=== PATIENT | female | born 1945 | race Caucasian/White ===

== ENCOUNTER 2018-06-24 06:46 | Day surgery (SDC) | payer MEDICARE, OTHER ==
[~2018-06-24] VITALS: Ht 172.7 cm; Wt 92.2 kg
[~2018-06-24 06:46] MED LIST: ASPI81EC PO; Aldactone25 MG PO; B Complex #11 EACH PO; BISA5EC PO; Bystolic10 MG PO; Estrogel93 GM TOP; LEVSOD112 PO; LEVSOD137 PO; LIOT25 PO; LISHYD2012 PO; MELO7.5 PO; NIFE30ER PO; SIMV10 PO; SPIR25 PO
[2018-06-24] MEDS ORDERED: MAGCHL64ER (07:18)
[2018-06-24] MEDS ORDERED: Vitamin D2000 UNIT (07:18)
== END 2018-06-24 08:52 | disposition home or self-care (01) ==
LOC: ORSCSDS 06:46
PROVIDERS: Surgery
PROC: 0DBK8ZX Excision of Ascending Colon, Via Natural or Artificial Opening Endoscopic, Diagnostic (ICD-10-PCS; principal; 2018-06-24 08:15)
DX: Z12.11 Encounter for screening for malignant neoplasm of colon (principal); D12.2 Benign neoplasm of ascending colon; K64.4 Residual hemorrhoidal skin tags; Z86.010 Personal history of colon polyps; E78.5 Hyperlipidemia, unspecified; G47.33 Obstructive sleep apnea (adult) (pediatric); I10 Essential (primary) hypertension; Z83.71 Family history of colonic polyps; Z79.82 Long term (current) use of aspirin; Z79.899 Other long term (current) drug therapy
CPT/HCPCS: 88305; J0330; J0461; J1980; J2405; J2704; J7120

== ENCOUNTER → 2018-11-26 | Outpatient (CLI) | payer MEDICARE, OTHER ==
[~2018-11-26] MED LIST changes: +MAGCHL64ER; +Vitamin D2000 UNIT
[2018-11-28 15:07] LABS: HPV 16 Negative (Negative); HPV 18 Negative (Negative); HPV OTHER HR TYPES Negative (Negative)
== END ==
LOC: LAB 17:54 → LAB SHORT 17:54
PROVIDERS: Obstetrics & Gynecology Gynecology
DX: Z12.72 Encounter for screening for malignant neoplasm of vagina (principal)
CPT/HCPCS: 87624; G0123

== ENCOUNTER → 2018-12-11 | Outpatient (CLI) | payer MEDICARE, OTHER | END | disposition home or self-care (01) | LOC: LAB 10:20 → LAB SHORT 10:20 → EDSTATUS 12-10 15:35 → LAB FUT 12-10 15:35 | DX: R10.13 Epigastric pain (principal) | CPT/HCPCS: 87338 ==

== ENCOUNTER 2019-01-27 08:48 | Day surgery (SDC) | payer MEDICARE, OTHER ==
[~2019-01-27] VITALS: Ht 172.7 cm; Wt 98.1 kg
[~2019-01-27 08:48] MED LIST changes: +Aspir 8181 MG
[2019-01-27] MEDS ORDERED: OMEPRAZOLE20 MG PO (10:08)
== END 2019-01-27 11:04 | disposition home or self-care (01) ==
LOC: ORSCSDS 08:48
PROVIDERS: Surgery
PROC: 0DB58ZX Excision of Esophagus, Via Natural or Artificial Opening Endoscopic, Diagnostic (ICD-10-PCS; principal; 2019-01-27 10:30)
DX: K21.0 Gastro-esophageal reflux disease with esophagitis (principal); K30 Functional dyspepsia; K44.9 Diaphragmatic hernia without obstruction or gangrene; I10 Essential (primary) hypertension; J45.909 Unspecified asthma, uncomplicated; E03.9 Hypothyroidism, unspecified; E78.5 Hyperlipidemia, unspecified; Z79.899 Other long term (current) drug therapy; Z79.82 Long term (current) use of aspirin
CPT/HCPCS: 88305; J2704; J7120

== ENCOUNTER 2019-10-22 11:49 | Day surgery (SDC) | payer MEDICARE ==
[~2019-10-22] VITALS: Ht 172.7 cm; Wt 102.3 kg
[~2019-10-22 11:49] MED LIST changes: +OMEPRAZOLE20 MG PO
--- NOTE | 2019-10-22 12:29 | NUR ---
10/22/19 1229 Yaquelin Marquez 1 TRY SADIA GÓMEZ
== END 2019-10-22 13:59 | disposition home or self-care (01) ==
LOC: ORSCSDS 11:49
PROVIDERS: Surgery
PROC: 0DJD8ZZ Inspection of Lower Intestinal Tract, Via Natural or Artificial Opening Endoscopic (ICD-10-PCS; principal; 2019-10-22 13:00)
DX: Z12.11 Encounter for screening for malignant neoplasm of colon (principal); Z86.010 Personal history of colon polyps; K64.8 Other hemorrhoids; K57.30 Diverticulosis of large intestine without perforation or abscess without bleeding; I10 Essential (primary) hypertension; G47.33 Obstructive sleep apnea (adult) (pediatric); J45.909 Unspecified asthma, uncomplicated; E66.9 Obesity, unspecified; Z68.34 Body mass index [BMI] 34.0-34.9, adult; Z79.82 Long term (current) use of aspirin; Z79.899 Other long term (current) drug therapy
CPT/HCPCS: J2704; J7120

== ENCOUNTER → 2021-10-19 | Outpatient (CLI) | payer MEDICARE ==
[2021-10-19 17:29] LABS: BASOPHILS ABSOLUTE AUTO 0.04 K/mm3 (0.00-0.23); BASOPHILS PERCENT AUTO 1 % (0-2); EOSINOPHILS PERCENT AUTO 2 % (0-6); Hematocrit 43.8 % (33.0-51.0); Hemoglobin 14.8 g/dL (11.5-16.0); IMMATURE GRAN ABSOLUTE AUTO 0.03 K/mm3 (0.00-0.10); IMMATURE GRAN PERCENT AUTO 0 % (0-1); LYMPHOCYTES ABSOLUTE AUTO 1.61 K/mm3 (0.84-5.20); LYMPHOCYTES PERCENT AUTO 24 % (21-46); MONOCYTES ABSOLUTE AUTO 0.65 K/mm3 (0.16-1.47); MONOCYTES PERCENT AUTO 10 % (4-13); Mean Corpuscular HGB 32.3 pg (26.0-34.0); Mean Corpuscular HGB Conc 33.8 g/dL (31.5-36.5); Mean Corpuscular Volume 96 fL (80-100); Mean Platelet Volume 11.2 fL (9.1-12.4); NEUTROPHILS ABSOLUTE AUTO 4.26 K/mm3 (1.96-9.15); NEUTROPHILS PERCENT AUTO 64 % (41-73); Platelet Count 166 K/mm3 (150-400); RDW Coefficient Variation 12.6 % (11.7-14.2); RDW Standard Deviation 43.8 fL (35.1-46.3); Red Blood Cell Count 4.58 M/mm3 (3.80-5.20); White Blood Cell Count 6.69 K/mm3 (4.00-11.30)
[2021-10-19 18:18] LABS: Alanine Aminotransfer (ALT/SGP 21 U/L (12-78); Albumin, Blood 3.8 g/dL (3.4-5.0); Albumin/Globulin Ratio 1.3 (0.8-1.8); Alk Phos 75 U/L (50-136); Anion Gap 3 mmol/L (6-16); Aspartate Aminotrans (AST/SGOT 16 U/L (12-37); Bilirubin, Total 0.5 mg/dL (0.1-1.0); Blood Urea Nitrogen 22 mg/dL (8-24); Bun/Creatinine Ratio 19.5 (12.0-20.0); CHOL/HDL RATIO 2.7; CO2, Blood 28 mmol/L (21-32); Chloride, Blood 108 mmol/L (98-108); Cholesterol 166 mg/dL (50-200); Creatinine, Blood 1.13 mg/dL (0.40-1.00); Globulin, Blood 2.9 g/dL (2.2-4.0); Glomerular Filtration Rate 50 (60-); Glucose, Blood 90 mg/dL (70-99); HDL Cholesterol 61 mg/dL (>39); LDL/HDL RATIO 1.3; Low Density Lipoprotein Chol 81 mg/dL (0-110); Potassium, Blood 4.4 mmol/L (3.5-5.5); Sodium, Blood 139 mmol/L (136-145); Thyroid Stimulating Hormone 0.913 uIU/mL (0.360-4.800); Total Protein, Blood 6.7 g/dL (6.4-8.2); Triglycerides 120 mg/dL (30-160); Very Low Density Lipoprot Chol 24 mg/dL (6-32)
== END | disposition home or self-care (01) ==
LOC: LAB SHORT 14:10 → LAB 14:10 → EDSTATUS 17:32
PROVIDERS: Internal Medicine
DX: I10 Essential (primary) hypertension (principal); E78.5 Hyperlipidemia, unspecified; E03.9 Hypothyroidism, unspecified; E53.8 Deficiency of other specified B group vitamins; R53.83 Other fatigue
CPT/HCPCS: 80053; 80061; 82607; 82746; 84443; 85025; 85651

== ENCOUNTER 2024-10-15 09:40 | Day surgery (SDC) | payer MEDICARE, OTHER ==
[~2024-10-15] VITALS: Ht 172.7 cm; Wt 103.5 kg
[~2024-10-15 09:40] MED LIST changes: -Aspir 8181 MG; +Aspir 8181 MG PO; +VITAMIN D5000 UNIT PO; -Vitamin D2000 UNIT
[2024-10-15] MEDS ORDERED: NEBI5 PO (10:04)
[2024-10-15 10:15] VITALS: BP 143/72
--- NOTE | 2024-10-15 10:22 | NUR ---
10/15/24 1022 Artem Pratt History, Chart, Medications and Allergies reviewed before start of procedure.MONITOR INTACT WITH CONTINUOUS PULSE OXIMETRY, CONTINUOUS END TITAL CO2, 3-LEAD EKG AND INTERMITTENT BLOOD PRESSURE.3-LEAD EKG REVIEWED WITH PHYSICIAN PRIOR TO START OF PROCEDURE.O2 VIA POM INTACT THROUGHOUT SEDATION/PROCEDURE.See Anesthesia record.
--- NOTE | 2024-10-15 10:24 | NUR ---
Ambulatory in Day Surgery. History, Chart, Medications and Allergies reviewed before start of procedure. Patient confirms NPO status and agrees with scheduled surgery. Pre-Op teaching done. Pt verbalizes understanding. Patient States Post-Procedure ride home has been arranged.
[2024-10-15 10:46] VITALS: BP 124/92
--- NOTE | 2024-10-15 11:05 | NUR ---
Discharge instructions reviewed with patient. Patient verbalizes understanding. Copy given to patient to take home. Patient States Post-Procedure ride home has been arranged. Discharged via wheelchair to private car for ride home.
== END 2024-10-15 11:18 | disposition home or self-care (01) ==
LOC: ORSCMMR 09:40 → ORD 11:00 → ORSCMMR 11:18
PROVIDERS: Surgery
PROC: 0DB78ZX Excision of Stomach, Pylorus, Via Natural or Artificial Opening Endoscopic, Diagnostic (ICD-10-PCS; principal; 2024-10-15 11:00)
DX: K21.9 Gastro-esophageal reflux disease without esophagitis (principal); K44.9 Diaphragmatic hernia without obstruction or gangrene; I10 Essential (primary) hypertension; G47.33 Obstructive sleep apnea (adult) (pediatric); E66.9 Obesity, unspecified; Z68.34 Body mass index [BMI] 34.0-34.9, adult; Z79.899 Other long term (current) drug therapy; Z79.82 Long term (current) use of aspirin
CPT/HCPCS: 88305; 88342; J2704; J7120

== ENCOUNTER 2024-12-04 06:38 | Day surgery (SDC) | payer MEDICARE, OTHER ==
[2024-12-04] VITALS (16 sets, daily range): BP systolic 123–169; BP diastolic 71–93
[~2024-12-04] VITALS: Ht 167.6 cm; Wt 98.5 kg
[~2024-12-04 06:38] MED LIST changes: +NEBI5 PO; +SLOW-MAG71.5 MG PO
[2024-12-04] MEDS ORDERED: Ondansetron HCl 2 MG / ML 2ML Vial ONE (06:57)
[2024-12-04] MEDS ORDERED: Phenylephrine HCl 100 MCG/ML-NS 10MLSYR (1MG/10ML) ONE (06:57)
[2024-12-04] MEDS ORDERED: Dexamethasone Sod Phos 10 MG/ML 1ML VIAL ONE (06:57)
[2024-12-04] MEDS ORDERED: FentaNYL Citrate 50 MCG/ML 2 ML Injection ONE (06:57)
[2024-12-04] MEDS ORDERED: Rocuronium Bromide 10 MG/ML 5ML Injection IV ONE (06:57)
[2024-12-04] MEDS ORDERED: NEBI10 PO (07:28)
[2024-12-04] MEDS ORDERED: Bupivacaine 0.5% W/EPI 1:200000 SDV 30 ML Vial ONE (07:41)
--- NOTE | 2024-12-04 07:42 | NUR ---
History, Chart, Medications and Allergies reviewed before start of procedure. Pre-Op teaching done. Pt verbalizes understanding. Patient confirms NPO status and agrees with scheduled surgery. PT SON AT BS.
[2024-12-04] MEDS ORDERED: HydrALAZINE HCl 20 MG / ML 1ML Vial IV PRN (08:30)
[2024-12-04] MEDS ORDERED: FentaNYL Citrate 50 MCG/ML 2 ML Injection IV PRN ×2 (08:30→08:35)
[2024-12-04] MEDS ORDERED: HYDROmorphone HCl/Pf 1MG SYR IV PRN ×3 (08:30→10:05)
[2024-12-04] MEDS ORDERED: Metoclopramide HCl 5MG / ML 2ML Vial IV PRN (08:35)
[2024-12-04] MEDS ORDERED: Ondansetron HCl 2 MG / ML 2ML Vial IV PRN ×2 (08:35→10:05)
[2024-12-04] MEDS ORDERED: Albuterol 2.5 MG/3 ML VIAL INH PRN (08:35)
[2024-12-04] MEDS ORDERED: ePHEDrine Sulfate 50 MG/ML 1ML Injection IV PRN (08:35)
[2024-12-04] MEDS ORDERED: Sugammadex Sodium 200 MG/2ML SDV (100 MG/ML) ONE (08:53)
[2024-12-04] MEDS ORDERED: Glycopyrrolate 0.2 MG/ML 5ML VIAL ONE (08:53)
[2024-12-04] MEDS ORDERED: FLU VACC TS2025(65UP)/MF59C/PF 45 MCG/0.5 ML SYRINGE IM SCH (10:05)
[2024-12-04] MEDS ORDERED: Ketorolac Tromethamine 15mg Vial IV PRN (10:10)
--- NOTE | 2024-12-04 10:53 | NUR ---
ARRIVAL TO SURG FLOOR TO FLOOR VIA GURNEY. A&O x4, SLEEPY BUT FOLLOWS COMMANDS APPROPRIATELY & AROUSABLE EASILY, VSS. SYSTOLIC BP IN 160'S. PT STATES BASELINE HX HTN, LAST TAKEN BP MEDICATION LAST NIGHT. ABD LAP SITES x4, C/D/I. SNACKS & DRINKS GIVEN. CURRENTLY RESTING IN BED w/CALL LIGHT WTIHIN REACH.
--- NOTE | 2024-12-04 16:39 | NUR ---
SHIFT SUMMARY ADMITTED ON 12/04 FOR FILEMON HERNIA REPAIR & FUNDOPLICATION. A&O x4, VSS. TOLERATING FULL LIQUID DIET WELL. REPORTS FEELING A "KNOT" IN THE UPPER EPIGASTRIC REGION, BUT REPORTS NO DIFFICULTY SWALLOWING & NO N/V AT THIS TIME. ABD LAP SITES x4, C/D/I. PAIN CONTROLLED WELL PER EMAR. SBA TO BATHROOM FOR VOID. CURRENTLY RESTING IN BED w/CALL LIGHT WITHIN REACH.
[2024-12-05 00:13] VITALS: BP 135/75
[2024-12-05 02:53] VITALS: BP 133/80
--- NOTE | 2024-12-05 04:19 | NUR ---
SHIFT SUMMARY PT S/P FUNDOLPLICATION. PT HAS DONE WELL OVENRIGHT, UP AMBULATING, PASSING GAS. TOLERATING DIET. PAIN MANAGED PER EMAR. VITALS ARE STABLE. NO ACUTE CHANGES OVERNIGHT AND POC REMAINS UNCHANGED. BED IN LOWEST POSITION, CALL LIGHT WITHIN REACH.
[2024-12-05 07:26] VITALS: BP 158/79
[2024-12-05] MEDS ORDERED: Enoxaparin 40 MG/0.4 ML SYR SC SCH (09:00)
[2024-12-05 12:02] VITALS: BP 174/67
--- NOTE | 2024-12-05 12:30 | NUR ---
DISCHARGE: PACKET PRINTED AND PT EDUCATED. IV DC'D WNL, TIP INTACT. SCRIPTS ALREADY SENT TO PHARMACY. PT TO LEAVE UNIT VIA WHEELCHAIR WITH SON AT ABOUT 1310
== END 2024-12-05 13:20 | disposition home or self-care (01) ==
LOC: ORSCMMR 06:38 → ORD 08:00 → SURS 10:32 → ORSCMMR 12-05 13:20
PROVIDERS: Surgery
PROC: 8E0W4CZ Robotic Assisted Procedure of Trunk Region, Percutaneous Endoscopic Approach (ICD-10-PCS; principal; 2024-12-04 08:00)
PROC: 0BQT4ZZ Repair Diaphragm, Percutaneous Endoscopic Approach (ICD-10-PCS; principal; 2024-12-04 08:00)
DX: K44.9 Diaphragmatic hernia without obstruction or gangrene (principal); K21.9 Gastro-esophageal reflux disease without esophagitis; I12.9 Hypertensive chronic kidney disease with stage 1 through stage 4 chronic kidney disease, or unspecified chronic kidney disease; N18.9 Chronic kidney disease, unspecified; G47.33 Obstructive sleep apnea (adult) (pediatric); E78.5 Hyperlipidemia, unspecified; E66.9 Obesity, unspecified; Z68.35 Body mass index [BMI] 35.0-35.9, adult; Z79.899 Other long term (current) drug therapy; Z79.82 Long term (current) use of aspirin; Z08 Encounter for follow-up examination after completed treatment for malignant neoplasm; Z85.850 Personal history of malignant neoplasm of thyroid
CPT/HCPCS: 94760; A9270; J1100; J1650; J1885; J2371; J2405; J2704; J3010; J7120